=== PATIENT | male | born 1990 | race Caucasian/White ===

== ENCOUNTER → 2025-03-24 13:21 | Outpatient (BNVA) | payer MEDICAID, SELFPAY | PROVIDERS: Family Provider Family Medicine; Visit Provider Specialist | DX: G81.14 Spastic hemiplegia affecting left nondominant side (principal) | CPT/HCPCS: 64644; 99213; J0585; J9999 ==

== ENCOUNTER → 2025-07-06 08:28 | Outpatient (BNVA) | payer MEDICARE, MEDICAID, SELFPAY | PROVIDERS: Family Provider Family Medicine; Visit Provider Specialist | DX: G81.14 Spastic hemiplegia affecting left nondominant side (principal); I67.1 Cerebral aneurysm, nonruptured; R56.9 Unspecified convulsions | CPT/HCPCS: 64644; 99213; J0585; J9999 ==